=== PATIENT | female | born 1995 | race Caucasian/White ===

== ENCOUNTER 2022-09-23 05:30 | Inpatient (IN) | payer OTHER ==
[~2022-09-23 05:30] MED LIST: Acetaminophen 500 MG TAB PO PRN; Butorphanol Tartrate 1 MG/ML VIAL SLOW IVP PRN; Carboprost 250 MCG/ML AMP IM PRN; Diphenoxylate HCl/Atropine Tablet PO PRN; Docusate 100 MG CAP PO PRN; HYDROcodone/Acetaminophen 5/325 mg Tablet PO PRN; Ibuprofen 800 MG TAB PO PRN; Lidocaine 1% (PF) 30 ML VIAL SC PRN; Methylergonovine 0.2 MG/ML VIAL IM PRN; Misoprostol 200 MCG TAB PR PRN; NS w/ Oxytocin 30 units 500 ML IV SCH; Ondansetron PF 4 MG/2 ML Vial IVP PRN; Promethazine HCl 25 MG/ML VIAL IM PRN; Tranexamic Acid 1,000 MG/10 ML VIAL IVP PRN; hydrALAZINE 20 MG/ML VIAL SLOW IVP PRN
[2022-09-23 06:23] LABS: Hemoglobin 13.2 g/dL (12.0-15.5); Mean Corpuscular HGB CONC 34.1 g/dL (32.0-36.0); Mean Corpuscular Hemoglobin 30.7 pg (27.0-33.0); Mean Platelet Volume 10.6 fl (7.4-10.4); Platelet Count 272 10x3/uL (150-450); RBC Distribution Width 13.5 % (11.5-14.5); White Blood Cell (WBC) Count 10.5 10x3/uL (3.5-10.5)
[2022-09-23 06:57] LABS: HBSAg Index 0.17 S/CO (0-0.99); Hep B Surf Ag - L&D Non-Reactive S/CO (NonReactive); Syphilis Antibody Nonreactive (Nonreactive); Syphilis Antibody Index 0.04 S/CO (<1.00 Non-Reactive)
[2022-09-23 07:04] VITALS: BMI 48.2
[2022-09-23] MEDS ORDERED: Misoprostol 100 MCG TAB ONE (07:23)
[2022-09-23] MEDS: Lactated Ringer's 1,000 ML IV SCH (19:25)
[2022-09-23] MEDS: Misoprostol 100 MCG TAB VAG SCH ×2 (19:26→20:45)
[2022-09-24] MEDS: Misoprostol 100 MCG TAB VAG SCH ×3 (00:44→19:26)
[2022-09-24] MEDS: Lactated Ringer's 1,000 ML IV SCH ×3 (03:01→19:25)
[2022-09-24] MEDS: Misoprostol 100 MCG TAB PO SCH ×3 (09:20→19:26)
[2022-09-24] MEDS ORDERED: Magnesium Sulfate 20 gm/500 ml 20 GM/500 ML BAG ONE (22:00)
[2022-09-24] MEDS ORDERED: hydrALAZINE 20 MG/ML VIAL ONE (22:00)
[2022-09-25] MEDS: Lactated Ringer's 1,000 ML IV SCH ×4 (06:11→18:48)
[2022-09-25] MEDS: Misoprostol 100 MCG TAB PO SCH ×3 (06:19→19:12)
[2022-09-25] MEDS ORDERED: fentaNYL/Ropivacaine Epidural 100 ML ONE (10:32)
[2022-09-25] MEDS ORDERED: Acetaminophen 325 MG TAB PO PRN (11:31)
[2022-09-25] MEDS ORDERED: Ondansetron PF 4 MG/2 ML Vial IVP PRN (11:31)
[2022-09-25] MEDS ORDERED: Naloxone HCl 0.4 mg/ml Vial IVP PRN ×2 (11:31)
[2022-09-25] MEDS ORDERED: Promethazine HCl 25 MG/ML VIAL IM PRN (11:31)
[2022-09-25] MEDS ORDERED: diphenhydrAMINE 50 MG/ML VIAL IVP PRN (11:31)
[2022-09-25] MEDS ORDERED: Moisturizing Cream (Eucerin) 113 GM JAR TOP PRN (11:31)
[2022-09-25] MEDS ORDERED: Lactated Ringer's 500 ML IV PRN (11:31)
[2022-09-25] MEDS ORDERED: ePHEDrine Sulfate 50 MG/10 ML VIAL SLOW IVP PRN (11:31)
[2022-09-25] MEDS ORDERED: Communication Order-Pharmacy FS SCH (11:45)
[2022-09-25] MEDS ORDERED: fentaNYL 2 mcg/Ropivacaine 0.2% Epidural 100 ML CADD EPIDURAL SCH (11:45)
[2022-09-25] MEDS ORDERED: Azithromycin 500 MG VIAL ONE (22:29)
[2022-09-25] MEDS ORDERED: CEFAZOLIN 2 GM VIAL ONE (22:29)
[2022-09-25] MEDS ORDERED: Misoprostol 200 MCG TAB ONE (22:42)
[2022-09-25] MEDS ORDERED: Tranexamic Acid 1,000 MG/10 ML VIAL ONE (22:42)
[2022-09-25] MEDS ORDERED: Methylergonovine 0.2 MG/ML VIAL ONE (22:42)
[2022-09-25] MEDS ORDERED: Carboprost 250 MCG/ML AMP ONE (22:42)
[2022-09-25] MEDS ORDERED: fentaNYL 50 mcg/mL 1 mL Vial ONE (23:14)
[2022-09-25] MEDS ORDERED: Morphine PF 10 MG/10 ML VIAL ONE (23:14)
[2022-09-25] MEDS ORDERED: ePHEDrine Sulfate 50 MG/10 ML VIAL ONE (23:15)
[2022-09-25] MEDS ORDERED: Oxytocin 10 UNITS/ML VIAL ONE (23:26)
[2022-09-25] MEDS ORDERED: Ondansetron PF 4 MG/2 ML Vial ONE (23:29)
[2022-09-25] MEDS ORDERED: PROPOFOL 20 ML ONE (23:36)
[2022-09-26] MEDS ORDERED: Rocuronium Bromide 10 MG/ML (10ML VIAL) ONE ×2 (00:05→00:53)
[2022-09-26] MEDS ORDERED: Dexamethasone 4 mg/ml Vial ONE (00:44)
[2022-09-26] MEDS ORDERED: fentaNYL 50 mcg/mL 1 mL Vial ONE (00:45)
[2022-09-26] MEDS ORDERED: Midazolam HCl 2 mg/2 ml Vial ONE (00:45)
[2022-09-26 01:00] LABS: pH (Cord, venous) 7.212 (7.250-7.350)
[2022-09-26] MEDS ORDERED: Electrolyte Replacement Protocol 1 EACH IVPB PRN (01:28)
[2022-09-26] MEDS ORDERED: Ventilator Sedation Protocol 1 EACH FS SCH (01:30)
[2022-09-26 01:34] LABS: Actual Bicarbonate (HCO3a) 21.1 mEq/L (22-28); Base Excess (BEa) -4.1 mEq/L (-2.0 to +3.0); CO2 Tension 39.1 mmHg (35.0-45.0); Calcium, Ionized (arterial) 1.14 mmol/L (1.12-1.30); Carboxyhemoglobin (COHb) 0.4 gm% (0.0-3.0); Hematocrit-ABG 39 % (36.0-47.0); Hemoglobin (Hb) 13.3 g/dL (12.0-16.0); O2 Tension (PaO2), arterial 76.8 mmHg (80.0-100.0); Potassium - ABG Lab 3.66 mmol/L (3.70-5.30); Puncture Site RRA
[2022-09-26 01:36] LABS: ALV-art Gradient 302.125 mmHg (0-20)
[2022-09-26] MEDS ORDERED: Fentanyl BOLUS 250 ML IVPB PRN (01:45)
[2022-09-26] MEDS ORDERED: FENTANYL 2,000MCG/100-0.9%NACL 100 ML IVPB SCH (01:45)
[2022-09-26] MEDS ORDERED: Propofol BOLUS 1,000 MG/100 ML VIAL IV PRN (01:45)
[2022-09-26] MEDS ORDERED: DISCONTINUE PREVIOUS NARCOTIC PAIN MEDICATIONS AND BENZODIAZEPINES FS SCH (01:45)
[2022-09-26] MEDS ORDERED: Morphine 2 MG/ML VIAL SLOW IVP PRN (01:45)
[2022-09-26] MEDS ORDERED: Lorazepam 2 MG/ML VIAL SLOW IVP PRN (01:45)
[2022-09-26] MEDS ORDERED: Misoprostol 200 MCG TAB PR PRN (01:52)
[2022-09-26] MEDS ORDERED: Bisacodyl 10 MG SUPP PR PRN ×2 (01:52→17:17)
[2022-09-26] MEDS ORDERED: hydrALAZINE 20 MG/ML VIAL SLOW IVP PRN ×2 (01:52→17:17)
[2022-09-26] MEDS ORDERED: Lanolin Ointment 7 GM TUBE TOP PRN ×2 (01:52→17:17)
[2022-09-26] MEDS ORDERED: Boostrix 0.5 ML (Tdap) VIAL (>/=7 yrs of age) IM ONE (01:52)
[2022-09-26] MEDS ORDERED: Dextrose 10% in Water 1,000 ML IV SCH (02:00)
[2022-09-26] MEDS: Propofol 1,000 MG/100 ML VIAL IV PRN ×2 (02:13→10:50)
[2022-09-26 02:27] LABS: Hemoglobin 13.5 g/dL (12.0-15.5); Mean Corpuscular HGB CONC 34.1 g/dL (32.0-36.0); Mean Corpuscular Hemoglobin 31.3 pg (27.0-33.0); Mean Corpuscular Volume 91.7 fl (81.6-98.3); Mean Platelet Volume 10.7 fl (7.4-10.4); Platelet Count 249 10x3/uL (150-450); RBC Distribution Width 13.5 % (11.5-14.5); Red Blood Cell (RBC) Count 4.32 10x6/uL (3.90-5.03); White Blood Cell (WBC) Count 20.6 10x3/uL (3.5-10.5)
[2022-09-26 02:30] LABS: MDiff Complete? YES
[2022-09-26 02:36] LABS: Anion Gap 16 mmol/L (10-20); BUN (Urea Nitrogen) 4 mg/dL (7.0-18.7); Carbon Dioxide 19 mmol/L (22-29); Chloride 104 mmol/L (98-107); Potassium 3.8 mmol/L (3.5-5.1); Sodium 135 mmol/L (136-145)
[2022-09-26 02:37] LABS: ALT (SGPT) 16 U/L (8-55); AST (SGOT) 15 U/L (5-34); Albumin 3.2 g/dL (3.5-5.0); Alkaline Phosphatase 130 U/L (40-110); Bilirubin, Total 0.6 mg/dL (0.2-1.2); Calc. Creatinine Clearance 224 mL/min (70-130); Calcium 8.8 mg/dL (7.8-10.44); Estimated GFR 114; Globulin 3.9 g/dL (2.4-3.5); Glucose 97 mg/dL (70-105); Magnesium 1.4 mg/dL (1.6-2.6); Protein, Total 7.1 g/dL (6.0-8.3)
[2022-09-26 02:46] LABS: Band 26 % (5-11); Lymphocytes 7 % (21-51); Metamyelocyte 1 % (0-0); Monocytes 3 % (0-10); Neutrophil 63 % (42-75)
[2022-09-26 02:48] LABS: Platelet Adequacy Comment Appears Adequate; RBC Morph Comment Within Normal Limits
[2022-09-26] MEDS ORDERED: Sodium Chloride 0.9% 1,000 ML IV SCH ×2 (04:00→05:00)
[2022-09-26] MEDS ORDERED: Piperacillin/Tazobactam 3.375 GM in Sodium Chloride 0.9% 100 ML IVPB SCH (04:00)
[2022-09-26] MEDS: Magnesium 2 GM/50 ML(in water) 2 GM in Premix Bag 1 BAG IVPB SCH ×2 (04:34→05:43)
[2022-09-26 05:30] LABS: Bilirubin Neg (Negative); Blood, Urine 10 (Negative); Clarity Clear (Clear); Glucose, Urine (Dipstick) Normal (Negative); Ketone, Urine Negative (Negative); Leukocyte Negative (Negative); Nitrite Negative (Negative); Protein, Urine (Dipstick) 30 mg/dl (Neg-Trace); Specific Gravity, Urine 1.025 (1.005-1.030)
[2022-09-26 05:35] LABS: Bacteria/HPF None Seen HPF (None Seen); CAUTI Indications for Culture Pregnancy; Squamous Epithelial 0-3 HPF (0-3); WBC/HPF 0-3 HPF (0-3)
[2022-09-26 05:38] LABS: Urine Culture Reflex Yes Yes
[2022-09-26] MEDS: Ibuprofen 400 MG TAB PO SCH ×2 (06:27→13:41)
[2022-09-26] MEDS: Lactated Ringer's 1,000 ML IV SCH ×2 (06:46→13:41)
[2022-09-26] MEDS: Piperacillin/Tazobactam 3.375 GM in Sodium Chloride 0.9% 100 ML IVPB SCH (07:53)
[2022-09-26] MEDS ORDERED: Prenatal Vitamin 1 TAB PO SCH (09:00)
[2022-09-26] MEDS ORDERED: Dexamethasone 4 mg/ml Vial SLOW IVP SCH (12:30)
[2022-09-26] MEDS ORDERED: Acetaminophen 500 MG TAB PO PRN (14:34)
[2022-09-26] MEDS ORDERED: diphenhydrAMINE 25 MG CAP PO PRN (17:17)
[2022-09-26] MEDS ORDERED: Ondansetron PF 4 MG/2 ML Vial IVP PRN (17:17)
[2022-09-26] MEDS ORDERED: HYDROcodone/Acetaminophen 5/325 mg Tablet PO PRN (17:17)
[2022-09-26] MEDS ORDERED: Varicella virus, LIVE 0.5 ML VIAL SC ONE (17:17)
[2022-09-26] MEDS ORDERED: Measles/Mumps/Rubella 10 MCG/0.5 ML VIAL SC ONE (17:17)
[2022-09-26] MEDS ORDERED: Zolpidem Tartrate 5 MG TAB PO PRN (21:00)
[2022-09-26] MEDS: Ferrous Sulfate 325 MG TAB PO SCH (22:00)
[2022-09-26] MEDS: Ibuprofen 800 MG TAB PO SCH (22:08)
[2022-09-27] MEDS: Ibuprofen 800 MG TAB PO SCH ×3 (05:22→21:19)
[2022-09-27] MEDS: HYDROcodone/Acetaminophen 5/325 mg Tablet PO PRN ×2 (09:29→19:50)
[2022-09-27] MEDS: Prenatal Vitamin 1 TAB PO SCH (09:29)
[2022-09-27] MEDS: Ferrous Sulfate 325 MG TAB PO SCH ×2 (09:30→19:42)
[2022-09-28] MEDS: Ibuprofen 800 MG TAB PO SCH ×3 (06:24→21:51)
[2022-09-28] MEDS: Ferrous Sulfate 325 MG TAB PO SCH ×2 (09:00→20:29)
[2022-09-28] MEDS: Prenatal Vitamin 1 TAB PO SCH (09:06)
[2022-09-28] MEDS: Piperacillin/Tazobactam 3.375 GM in Sodium Chloride 0.9% 100 ML IVPB SCH (09:19)
[2022-09-29] MEDS: Docusate 100 MG CAP PO SCH ×2 (04:47→08:37)
[2022-09-29] MEDS: HYDROcodone/Acetaminophen 5/325 mg Tablet PO PRN ×2 (04:47→13:25)
[2022-09-29] MEDS: Ibuprofen 800 MG TAB PO SCH ×2 (06:00→13:24)
[2022-09-29 08:30] VITALS: BP 119/71; TEMP 98.5
[2022-09-29] MEDS: Prenatal Vitamin 1 TAB PO SCH (08:37)
[2022-09-29] MEDS: Ferrous Sulfate 325 MG TAB PO SCH (10:25)
== END 2022-09-29 13:35 | disposition home or self-care (01) | DRG 787 ==
LOC: CSHLD 05:40 → CSHICU 09-26 00:53 → CSHANTE 09-26 16:24
PROVIDERS: ADMIT Obstetrics & Gynecology; ATTEND Obstetrics & Gynecology
PROC: 10D00Z1 Extraction of Products of Conception, Low, Open Approach (ICD-10-PCS; principal; 2022-09-26)
PROC: 3E0P7VZ Introduction of Hormone into Female Reproductive, Via Natural or Artificial Opening (ICD-10-PCS; 2022-09-26)
PROC: 0BH17EZ Insertion of Endotracheal Airway into Trachea, Via Natural or Artificial Opening (ICD-10-PCS; 2022-09-26)
PROC: 4A133R1 Monitoring of Arterial Saturation, Peripheral, Percutaneous Approach (ICD-10-PCS; 2022-09-26)
PROC: 3E033VJ Introduction of Other Hormone into Peripheral Vein, Percutaneous Approach (ICD-10-PCS; 2022-09-26)
PROC: 3E0P7VZ Introduction of Hormone into Female Reproductive, Via Natural or Artificial Opening (ICD-10-PCS; 2022-09-26)
PROC: 5A1935Z Respiratory Ventilation, Less than 24 Consecutive Hours (ICD-10-PCS; 2022-09-26)
PROC: 0UB90ZZ Excision of Uterus, Open Approach (ICD-10-PCS; 2022-09-26)
DX: O41.03X0 Oligohydramnios, third trimester, not applicable or unspecified (principal); O10.913 Unspecified pre-existing hypertension complicating pregnancy, third trimester; O99.214 Obesity complicating childbirth; Z3A.37 37 weeks gestation of pregnancy; Z37.0 Single live birth; O90.89 Other complications of the puerperium, not elsewhere classified; E66.01 Morbid (severe) obesity due to excess calories
CPT/HCPCS: 36415; 36416; 36600; 51702; 71045; 81001; 82805; 83735; 85025; 85027; 86780; 86850; 86900; 86901; 87040; 87086; 87340; 88305; 94002; 94150; 94760; 94762; J1100; J1650; J2060; J2250; J2274; J2405; J2543; J2590; J2704; J3010; J3475; J3490; J7050; J7120